=== PATIENT | female | born 1955 | race Caucasian/White ===

== ENCOUNTER 2017-09-30 21:10 | Emergency (ER) | payer OTHER ==
[~2017-09-30 21:10] MED LIST: ACTOPLUS MET1 TABLET PO; ATIVAN0.5 MG PO; Amoxicillin PO; Aspirin E.C. PO; CARDIZEM CD120 MG PO; HYDROCODON-ACE1 EAC7 PO; IMODIUM A-1 MG/7.5 M PO; LEVEMIR FL100 UNIT/1 SC; LEVEMIR FL100 UNITS/ SQ; LIDODERM 5% P1 PATCH TD; LISINOPRIL10 MG PO; Levaquin PO; NITROSTAT0.4 MG SL; NORCO 5/3251 TABLET PO; NORCO 7.5/321 TABLET PO; PREDNISONE10 M1 PO; PREDNISONE20 MG PO; TRAMADOL HCL50 MG PO; TRANSDERM-NITR0.2 MG TD; VALIUM5 MG PO; XANAX0.5 MG PO; ZOFRAN4 MG PO
== END 2017-09-30 21:16 | disposition left against medical advice (07) ==
LOC: EME 21:10
DX: R68.89 Other general symptoms and signs (principal); Z53.21 Procedure and treatment not carried out due to patient leaving prior to being seen by health care provider

== ENCOUNTER 2018-01-22 20:00 | Emergency (ER) | payer SELFPAY ==
[~2018-01-22] VITALS: Ht 160 cm; Wt 82.8 kg
[2018-01-22] MEDS ORDERED: NORCO 5/3251 TABLET PO (21:53)
[2018-01-22] MEDS ORDERED: FLEXERIL10 MG PO (21:53)
[2018-01-22 22:30] VITALS: BP 154/96
== END 2018-01-22 22:30 | disposition home or self-care (01) ==
LOC: EME 20:00
DX: S39.012A Strain of muscle, fascia and tendon of lower back, initial encounter (principal); S63.502A Unspecified sprain of left wrist, initial encounter; S63.501A Unspecified sprain of right wrist, initial encounter; S80.01XA Contusion of right knee, initial encounter; S80.02XA Contusion of left knee, initial encounter; W01.0XXA Fall on same level from slipping, tripping and stumbling without subsequent striking against object, initial encounter; Y93.01 Activity, walking, marching and hiking; I10 Essential (primary) hypertension; E78.5 Hyperlipidemia, unspecified; E11.9 Type 2 diabetes mellitus without complications; F41.9 Anxiety disorder, unspecified; Z79.82 Long term (current) use of aspirin; Z79.4 Long term (current) use of insulin; Z98.890 Other specified postprocedural states; Z85.3 Personal history of malignant neoplasm of breast; Z91.040 Latex allergy status; Z88.8 Allergy status to other drugs, medicaments and biological substances
CPT/HCPCS: 72100; 73564